=== PATIENT | male | born 1970 | race Caucasian/White ===

== ENCOUNTER 2025-02-13 20:23 | Emergency (ER) | payer BC ==
[2025-02-13 20:47] VITALS: RESP 16
[2025-02-13] MEDS: LIDOCAINE 1% INJ 10MG/ML (20 ML MDV) SQ ONE (21:21)
--- NOTE | 2025-02-13 21:45 | ED ---
Skin/Abscess/FB HPI - General Chief complaint: Skin/Abscess/Foreign Body Stated complaint: L Shoulder Abcess Time Seen by Provider: 02/13/25 21:43 Source: patient, family, RN notes reviewed Mode of arrival: ambulatory Limitations: no limitations - History of Present Illness Initial comments: 54-year-old male presented the ER for evaluation of left arm abscess. Patient sent from urgent care. Approximately 2 years ago patient states he was bit by a tick in his left shoulder, his states she believed she removed the entire tick at that time. A couple of days ago patient states he noticed a very small area. He has been picking at it and noticed today area increased in size, redness and pain to area of concern. Patient's states she attempted to pop it expressed whitish material. Patient is concerned that tick may still be embedded. Patient sent by urgent care for further evaluation. Patient denies any current fevers, chills, nausea, vomiting, lethargy or other complaints at this time. Denies history of MRSA. No other complaints. - Related Data Previous Rx's Medication Instructions Recorded Cephalexin [Keflex] 500 mg PO Q6HR #28 cap 02/13/25 Allergies Allergy/AdvReac Type Severity Reaction Status Date / Time No Known Allergies Allergy Verified 02/13/25 20:47 Review of Systems ROS Statement: Those systems with pertinent positive or pertinent negative responses have been documented in the HPI. ROS Other: All systems not noted in ROS Statement are negative. Past Medical History Past Medical History: No Reported History History of Any Multi-Drug Resistant Organisms: None Reported Additional Past Surgical History / Comment(s): right elbow Past Psychological History: No Psychological Hx Reported Smoking Status: Current every day smoker Past Alcohol Use History: Occasional Past Drug Use History: Marijuana General Exam Limitations: no limitations General appearance: alert, in no apparent distress Respiratory exam: Present: normal lung sounds bilaterally. Absent: respiratory distress, wheezes, rales, rhonchi, stridor Cardiovascular Exam: Present: regular rate, normal rhythm, normal heart sounds. Absent: systolic murmur, diastolic murmur, rubs, gallop, clicks Extremities exam: Present: normal inspection, full ROM, normal capillary refill. Absent: tenderness, pedal edema, joint swelling, calf tenderness Neurological exam: Present: alert, oriented X3, CN II-XII intact Skin exam: Present: warm, dry, intact, normal color, other (4 cm erythematous raised fluctuant area overlying left arytenoid. Area is tender and warm to touch. No drainage present.) Course Vital Signs 02/13/25 02/13/25 20:42 21:57 Temperature 98.1 F 98.7 F Pulse Rate 70 58 L Respiratory 16 16 Rate Blood Pressure 132/83 123/79 O2 Sat by Pulse 97 96 Oximetry Procedures - Incision & Drainage Consent Obtained: verbal consent Indication: infecct cyst Site: upper extremity Size (cm): 4 Anesthetic Used: lidocaine 1%, without epi Amount (mLs): 4 I&D Cleaning Method: Chloroprep Sterile Field Used?: Yes Scalpel Used: #11 Ultrasound used: No Needle Aspiration Performed?: Yes Irrigation Performed?: No I&D Drainage Obtained: Pus, Blood Loculation Noted: probing needed to break Insertion of drain: No Culture Obtained?: Yes Patient Tolerated Procedure: well Medical Decision Making - Medical Decision Making Was pt. sent in by a medical professional or institution (Dr. PA, PROFESSOR OF COMMUNICATION AND WRITING, urgent care, hospital, or [facility]...) When possible be specific @ -Patient sent by urgent care. Did you speak to anyone other than the patient for history (EMS, parent, family, police, friend...)? What history was obtained from this source @ -Patient's , at bedside, aiding in HPI and PMhx. Did you review nursing and triage notes (agree or disagree)? Why? @ -I reviewed and agree with nursing and triage notes Were old charts reviewed (outside hosp., previous admission, EMS record, old EKG, old radiological studies, urgent care reports/EKG's, [facility] records)? Report findings @ -No old charts were reviewed Differential Diagnosis (chest pain, altered mental status, abdominal pain women, abdominal pain men, vaginal bleeding, weakness, fever, dyspnea, syncope, headache, dizziness, GI bleed, back pain, seizure, CVA, palpatations, mental health, musculoskeletal)? @ -Abscess, cyst, sepsis, cellulitis... This list is not meant to be all- inclusive EKG interpreted by me (3pts min.). @ -[None done X-rays interpreted by me (1pt min.). @ -None done CT interpreted by me (1pt min.). @ -None done U/S interpreted by me (1pt. min.). @ -None done What testing was considered but not performed or refused? (CT, X-rays, U/S, labs)? Why? @ -None What meds were considered but not given or refused? Why? @ -None Did you discuss the management of the patient with other professionals (professionals i.e. DrMadeline, PA, PROFESSOR OF COMMUNICATION AND WRITING, lab, RT, psych nurse, sexual assault social worker, high school music director, teacher, photographic intelligence officer, piano case and bench assembler)? Give summary @ -No Was smoking cessation discussed for >3mins.? @ -No Was critical care preformed (if so, how long)? @ -No Were there social determinants of health that impacted care today? How? (Homelessness, low income, unemployed, alcoholism, drug addiction, transportation, low edu. Level, literacy, decrease access to med. care, shelter, rehab)? @ -No Was there de-escalation of care discussed even if they declined (Discuss DNR or withdrawal of care, Hospice)? DNR status @ -No What co-morbidities impacted this encounter? (DM, HTN, Smoking, COPD, CAD, Cancer, CVA, ARF, Chemo, Hep., AIDS, mental health diagnosis, sleep apnea, morbid obesity)? @ -None Was patient admitted / discharged? Hospital course, mention meds given and route, prescriptions, significant lab abnormalities, going to OR and other pertinent info. @ -Discharged. 54 year old male presenting to the ER for evaluation of left arm abscess. Upon rooming, history and physical exam completed. Vitals with acceptable limits. Exam remarkable for a 4 cm erythematous fluctuant raised area overlying left deltoid. Patient is neurovascularly intact. Area was initially anesthetized with local lidocaine and needle aspiration performed. There was purulent drainage present on needle aspiration for which he had a 11 blade scalpel was used to perform I&D at site of needle aspiration. There was additional purulent drainage mixed with blood expressed. Wound culture obtained. Given concern of infection, patient placed on Keflex pending culture results. Wound care and post I&D instructions discussed with patient. Advise warm compresses and massage. Patient stable for discharge with close outpatient follow-up with PCP and dermatology, referral given. Strict return parameters discussed. Patient discharged in stable condition. Patient verbally expressed understanding agree with care plan. Case discussed with ED attending, . @ -No Drug Therapy requiring intensive monitoring for toxicity (Heparin, Nitro, Insulin, Cardizem)? @ -No Were any procedures done? @ -Yes Diagnosis/symptom? @ -Abscess Acute, or Chronic, or Acute on Chronic? @ -Acute Uncomplicated (without systemic symptoms) or Complicated (systemic symptoms)? @ -Uncomplicated Side effects of treatment? @ -No Exacerbation, Progression, or Severe Exacerbation? @ -No Poses a threat to life or bodily function? How? (Chest pain, [place], [place], pneumonia, PE, COPD, DKA, ARF, appy, cholecystitis, CVA, Diverticulitis, Homicidal, Suicidal, threat to staff... and all critical care pts) @ -No Disposition Clinical Impression: Abscess Disposition: HOME SELF-CARE Condition: Stable Instructions (If sedation given, give patient instructions): Abscess (ED) Additional Instructions: Take Keflex as prescribed. Follow-up with PCP and dermatology. Return to the ER for any new or worsening symptoms. Prescriptions: Cephalexin [Keflex] 500 mg PO Q6HR #28 cap Is patient prescribed a controlled substance at d/c from ED?: No Referrals: None,Stated [Primary Care Provider] - 1-2 days Yvonne Alonzo MD [STAFF PHYSICIAN] - 1-2 days Forms: Area PCPs Time of Disposition: 21:45
[2025-02-13] MEDS: CEPHALEXIN 500 MG CAP PO STA (21:54)
[2025-02-13 22:49] VITALS: BP 123/79; PULSE 58; TEMP 98.7
== END 2025-02-13 21:57 | disposition home or self-care (01) ==
LOC: EC 20:23
DX: L02.414 Cutaneous abscess of left upper limb (principal); F17.200 Nicotine dependence, unspecified, uncomplicated
CPT/HCPCS: 87070; 87205; 99283; 10060; J2003